=== PATIENT | female | born 1965 | race Caucasian/White ===

== ENCOUNTER 2018-09-14 09:35 | Outpatient (CLI) | payer BC ==
--- NOTE | 2018-09-14 13:35 | ULT ---
THYROID ULTRASOUND: 09/14/18 HISTORY: Thyrotoxicosis. COMPARISON: None. TECHNIQUE: Sagittal and transverse imaging of the thyroid gland is performed. FINDINGS: There is diffuse heterogeneity throughout the thyroid gland. Right thyroid lobe measures 2.0 x 4.9 x 2.4 cm. Left thyroid lobe measures 4.5 x 1.6 x 2.2 cm. Thyroid isthmus 0.4 cm. There is a complex nod ule with calcifications in the mid portion of the left thyroid lobe measuring 1.5 x 1.5 x 1.3 cm. The re are multiple nodules in the right thyroid lobe. Largest nodule thyroid lobe measures 1.2 x 2.0 x 2 .2 cm and has a predominantly solid echotexture. IMPRESSION: Multiple nodules in the right thyroid lobe. Largest nodule in the right thyroid lobe has a TI-RADs le chari of TR3. Follow-up imaging in one year is recommended. Dominant nodule in the left thyroid lobe shepard s a TI-RADS level of TR4. Given size of lesion, fine needle aspiration is recommended. POS: FRANCISCO
== END 2018-09-14 09:36 | disposition home or self-care (01) ==
LOC: ULT 09:35
PROVIDERS: ATTEND Otolaryngology Plastic Surgery within the Head & Neck
DX: E05.90 Thyrotoxicosis, unspecified without thyrotoxic crisis or storm (principal); E04.2 Nontoxic multinodular goiter
CPT/HCPCS: 76536

== ENCOUNTER 2018-09-28 07:48 | Outpatient (CLI) | payer BC ==
--- NOTE | 2018-09-29 09:49 | NM ---
NM I-[id number] Thyroid Uptake/Scan History: Thyrotoxicosis unspecified Comparison: Thyroid ultrasound September 14, 2018 Findings: Planar imaging of the neck was performed after the oral administration 258 uCi I-123. Abnormal elevated uptake at 6 hour and 24-hour of 57.13% and 57.22%, respectively. Impression: Markedly elevated uptake of radiotracer suggesting thyroiditis such as Graves' disease.
== END 2018-09-28 07:49 | disposition home or self-care (01) ==
LOC: NM 07:48
PROVIDERS: ATTEND Otolaryngology Plastic Surgery within the Head & Neck
DX: E05.90 Thyrotoxicosis, unspecified without thyrotoxic crisis or storm (principal)
CPT/HCPCS: 78014; A9516